=== PATIENT | female | born 1950 | race Asian ===

== ENCOUNTER 2020-03-08 11:49 | Outpatient (CLI) | payer OTHER | END 2020-03-08 11:55 | disposition home or self-care (01) | LOC: RAD 11:49 | PROVIDERS: ATTEND Internal Medicine | DX: M16.11 Unilateral primary osteoarthritis, right hip (principal); M43.17 Spondylolisthesis, lumbosacral region; M54.89 Other dorsalgia; M25.551 Pain in right hip; S79.911A Unspecified injury of right hip, initial encounter ==